=== PATIENT | male | born 1985 | race Caucasian/White ===

== ENCOUNTER 2022-08-17 13:02 | Outpatient (CLI) | payer OTHER | END 2022-08-17 23:59 | disposition home or self-care (01) | LOC: RAD 13:02 | PROVIDERS: ATTEND Chiropractor | DX: S66.911A Strain of unspecified muscle, fascia and tendon at wrist and hand level, right hand, initial encounter (principal); M13.80 Other specified arthritis, unspecified site; X58.XXXA Exposure to other specified factors, initial encounter; Y93.89 Activity, other specified; Y92.89 Other specified places as the place of occurrence of the external cause; Y99.8 Other external cause status | CPT/HCPCS: 73100 ==

== ENCOUNTER 2022-10-08 13:38 | Outpatient (CLI) | payer OTHER | END 2022-10-08 23:59 | disposition home or self-care (01) | LOC: RAD 13:38 | PROVIDERS: ATTEND Chiropractor | DX: M19.012 Primary osteoarthritis, left shoulder (principal); M19.011 Primary osteoarthritis, right shoulder; I08.8 Other rheumatic multiple valve diseases; R00.1 Bradycardia, unspecified | CPT/HCPCS: 73030; 93005; 93306 ==